=== PATIENT | male | born 1975 | race Caucasian/White ===

== ENCOUNTER → 2017-07-31 | Outpatient (CLI) | payer MEDICAID | LOC: CIMAGING 10:30 | PROVIDERS: ATTEND Nurse Practitioner Women's Health | DX: M25.562 Pain in left knee (principal) | CPT/HCPCS: 73564-PO ==

== ENCOUNTER 2018-03-21 01:43 | Emergency (ER) | payer MEDICAID ==
[2018-03-21] MEDS ORDERED: TDAP ADULT 0.5 ML INJ (BOOSTRIX) IM ONE (01:57)
[2018-03-21] MEDS ORDERED: EPINEPHrine 1 MG/ML INJ ONE (02:00)
[2018-03-21] MEDS ORDERED: RANITIDINE 50 MG/2 ML VIAL IV ONE (02:08)
[2018-03-21] MEDS ORDERED: EPINEPHrine 1 MG/ML INJ IM ONE (02:08)
[2018-03-21] MEDS ORDERED: methylPREDNISolone SOD SUCC 125 MG/2 ML VIAL IVP ONE (02:08)
[2018-03-21] MEDS ORDERED: predniSONE 20 MG TAB PO ONE (02:14)
[2018-03-21] MEDS ORDERED: FAMOTIDINE 20 MG TAB PO ONE (02:14)
--- NOTE | 2018-03-21 02:27 | EDPHY ---
H & P Stated Complaint: Bee sting 11:30 03/20, still swelling lips eyes. Time Seen by Provider: 03/21/18 01:55 HPI/ROS: CHIEF COMPLAINT: Bee sting and facial swelling History by patient, neighbor and family HISTORY OF PRESENT ILLNESS: 42-year-old otherwise healthy man with no prior history of the allergy presents complaining of acute onset of facial swelling, tongue and lip swelling, diffuse body itching dizziness and chest pain after ED landed is drink he took sips and the bee stung him on the roof his mouth. This occurred almost 2 hr prior to admission. He took 25 of Benadryl with no real improvement. They called their neighbor who convinced him to take more Benadryl but he was resistant to coming to the emergency department. Ultimately took a total of 75 Benadryl and he felt somewhat better but he continued to be itchy and have the facial swelling including his uvula. He denies any shortness of breath. He has never had a reaction like this before. He had no allergic reaction once to poison oak and was also stung by a hornet that time. Patient is a lead housekeeper. 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 Head: normocephalic, atraumatic Eyes: Pupils equal and round, reactive to light, no pallor or injection. Mouth: Lips swollen, Mucous membranes moist. Mild tongue swelling, positive uvular swelling, no drooling Respiratory: Normal, effort, lungs are clear to auscultation. No wheezes, rales or rhonchi. Cardiovascular: Regular rate and rhythm. S1, S2, no murmurs, gallops or rubs appreciated Gastrointestinal: Abdomen is soft and nontender, no masses, bowel sounds normal. Back: No CVA tenderness, no bony tenderness Neurological: Awake, alert and oriented x 3, no pronator drift, normal gait, no pronator drift Skin: Warm and dry, diffuse erythema and urticaria. Musculoskeletal: No deformities or tenderness. Extremities: full range of motion, no edema, DP2+ bilat Psychiatric: Patient has normal affect, there is no agitation. Constitutional: Initial Vital Signs Temperature (C) 36.5 C 03/21/18 01:54 Heart Rate 73 03/21/18 01:54 Respiratory Rate 16 03/21/18 01:54 Blood Pressure 138/84 H 03/21/18 01:54 O2 Sat (%) 93 03/21/18 01:54 O2 Delivery Mode Room Air Allergies/Adverse Reactions: bee pollen Allergy (Severe, Verified 03/21/18 01:54) Swelling/neck,face,throat Home Medications: Medication Instructions Recorded EPINEPHrine [Epipen 0.3 MG] 0.3 mg IM ONCE #2 syr 03/21/18 Medical Decision Making ED Course/Re-evaluation: 42-year-old man presents with anaphylaxis after a bee sting. On arrival here the patient's vital signs were stable and there was no respiratory compromise however he continued to have significant swelling in his mouth and his face as well as persistent diffuse urticaria. In addition occurred patient had clearly had a significant reaction at home. The patient was given IM epinephrine with visible improvement. He was also given oral this prednisone and Pepcid as he declined intravenous medications. Patient was observed for several hours without worsening and he was discharged home in stable condition with a prescription for EpiPen. We discussed the importance of him to carry this at all time because due to the potential for him to have very serious reaction to another bee sting. - Data Points Medications Given: Discontinued Medications Diphtheria/Tetanus/Acell Pertussis (Boostrix) 0.5 ml IM .ONCE ONE Stop: 03/21/18 01:58 Last Admin: 03/21/18 02:21 Dose: 0.5 ml Epinephrine HCl (Epinephrine) 0.3 mg IM EDNOW ONE Stop: 03/21/18 02:09 Last Admin: 03/21/18 02:15 Dose: 0.3 mg Famotidine (Pepcid) 20 mg PO EDNOW ONE Stop: 03/21/18 02:15 Last Admin: 03/21/18 02:20 Dose: 20 mg Methylprednisolone Sodium Succinate (Solu-Medrol) 125 mg IVP EDNOW ONE Stop: 03/21/18 02:09 Last Admin: 03/21/18 02:15 Dose: Not Given Prednisone (Prednisone) 60 mg PO EDNOW ONE Stop: 03/21/18 02:15 Last Admin: 03/21/18 02:21 Dose: 60 mg Ranitidine HCl (Zantac) 50 mg IV EDNOW ONE Stop: 03/21/18 02:09 Last Admin: 03/21/18 02:15 Dose: Not Given Departure - Departure Disposition: Home, Routine, Self-Care Clinical Impression: Acute anaphylaxis Condition: Good Instructions: Insect Bite or Sting (ED), Anaphylaxis (ED) Additional Instructions: You were seen by Dr. Shaista Kessler today. You had a serious allergic reaction to a bee sting this evening. Please carry EpiPen with you at all times and use immediately in case of similar reaction in the future. I recommend follow up with manager party to discussed desensitization for bees. Return for any worsening or new concerns. Referrals: Harry Akers MD [Medical Doctor] - As per Instructions Priya Palmer MD [Medical Doctor] - As per Instructions Prescriptions: EPINEPHrine [Epipen 0.3 MG] 0.3 mg IM ONCE #2 syr
[2018-03-21 05:55] VITALS: BP 107/65
== END 2018-03-21 05:53 | disposition home or self-care (01) ==
LOC: CED 01:43
DX: T78.2XXA Anaphylactic shock, unspecified, initial encounter (principal); Z23 Encounter for immunization
CPT/HCPCS: J0171; J7512